=== PATIENT | male | born 2000 | race Two or more races ===

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

== ENCOUNTER 2019-05-11 08:23 | Emergency (ER) | payer BC, OTHER ==
[~2019-05-11] VITALS: Ht 162.6 cm; Wt 84.4 kg
[2019-05-11] MEDS ORDERED: TETANUS-DIPTH-ACEL PERTUSSIS 0.5ML SYRG IM ONE (08:45)
[2019-05-11 08:56] VITALS: BP 144/80
[2019-05-11] MEDS ORDERED: cefTRIAXone SOD 1,000 MG VL IM ONE (10:00)
[2019-05-11] MEDS ORDERED: LIDOCAINE 1% HCL (LOCAL ANESTH.) INJ 20ML MDV ID ONE (10:00)
== END 2019-05-11 10:26 | disposition home or self-care (01) ==
LOC: ER 08:23
DX: S61.012A Laceration without foreign body of left thumb without damage to nail, initial encounter (principal); W45.8XXA Other foreign body or object entering through skin, initial encounter; Y93.89 Activity, other specified; Y99.8 Other external cause status; Y92.89 Other specified places as the place of occurrence of the external cause
CPT/HCPCS: 12001; 90471; 90715; 96372; 99283; J0696; J2001

== ENCOUNTER 2020-03-17 07:11 | Emergency (ER) | payer BC, OTHER ==
[~2020-03-17] VITALS: Ht 162.6 cm; Wt 81.6 kg
[2020-03-17] MEDS ORDERED: methylPREDNISolone SOD SUCC 125 MG/2 ML VL IM ONE (07:45)
[2020-03-17 07:55] VITALS: BP 138/83
== END 2020-03-17 09:17 | disposition home or self-care (01) ==
LOC: ER 07:11
DX: J45.909 Unspecified asthma, uncomplicated (principal)
CPT/HCPCS: 71045; 96372; 99283; J2930

== ENCOUNTER 2023-09-09 14:17 | Emergency (ER) | payer SELFPAY ==
[~2023-09-09] VITALS: Ht 160 cm; Wt 81.1 kg
[2023-09-09 14:43] VITALS: BP 147/74; PULSE 99; RESP 17; O2SAT 98
[2023-09-09] MEDS ORDERED: NAPR-957 PO (15:04)
== END 2023-09-09 15:04 | disposition home or self-care (01) ==
LOC: ER 14:17
DX: R51.9 Headache, unspecified (principal); J45.909 Unspecified asthma, uncomplicated; W01.0XXA Fall on same level from slipping, tripping and stumbling without subsequent striking against object, initial encounter; Y93.89 Activity, other specified; Y92.89 Other specified places as the place of occurrence of the external cause; Y99.8 Other external cause status